=== PATIENT | female | born 1965 | race Asian ===

== ENCOUNTER 2016-08-18 16:47 | Emergency (ER) | payer BC ==
[2016-08-18 17:25] VITALS: BP 97/51; PULSE 54; RESP 16; TEMP 97.5; O2SAT 96
[2016-08-18] MEDS ORDERED: ONDANSETRON DISINTEGRATING 4 MG TAB ONE (17:33)
[2016-08-18] MEDS ORDERED: ONDANSETRON DISINTEGRATING 4 MG TAB PO ONE (17:48)
[2016-08-18] MEDS ORDERED: NS 1,000 ML IV ONE (18:10)
--- NOTE | 2016-08-18 18:10 | UCPHY ---
H & P Time Seen by Provider: 08/18/16 18:00 Patient Type: New HPI/ROS: CHIEF COMPLAINT: Cough and general illness persists HISTORY OF PRESENT ILLNESS: 51-year-old female who has been ill for 10 days. She started with a moderate cough which has been improving but still lingering. She is here today because she feels like she is actually getting a little bit worse with increasing cough. There has been no actual fevers. No prior influenza immunization this past year. No particular exposure or contact. There has been no associated earache or sinus pain or sinus discomfort pain with bending over or change in phonation or adenopathy. Furthermore, as of yesterday afternoon she started vomiting. She has not been able to keep any fluids down since then. Yesterday morning she had some coffee as well as this morning but nothing really else per se. He has not had no known exposure contacts with people with a GI illness. She has had no recent antibiotics. While she has been vomiting is been no diarrhea REVIEW OF SYSTEMS: Constitutional: No fever, no chills. Eyes: No discharge ENT: No sore throat. Cardiovascular: No chest pain, no palpitations. Respiratory: No cough, shortness of breath, or wheezing. Gastrointestinal: No nausea vomiting or diarrhea. No abdominal pain. Genitourinary: No hematuria or frequency. Musculoskeletal: No back pain. Skin: No rashes. Neurological: No headache. Smoking Status: Never smoked Physical Exam: General Appearance: Alert, no distress. Afebrile. Normal phonation. No respiratory distress. Eyes: Pupils equal and round no pallor or injection. No icterus ENT, Mouth: Mucous membranes moist. Pharynx without erythema or exudate. TM Clear. Neck: No adenopathy. Supple. No JVD. Trachea in midline. Respiratory: There are no retractions, lungs are clear to auscultation. Cardiovascular: Regular rate and rhythm. Abdomen: Soft and nontender, no masses, bowel sounds normal. Femoral pulses equal. Neurological: Ox3. No motor weakness. Sensation intact. Gait nl. Skin: Warm and dry, no rashes. Musculoskeletal: No joint swelling. Extremities: No edema. Homans sign negative. No cords. Psychiatric: Normal affect. [Patient is oriented X 3, there is no agitation] Constitutional: Initial Vital Signs Temperature (C) 36.4 C 08/18/16 17:22 Heart Rate 54 L 08/18/16 17:22 Respiratory Rate 16 08/18/16 17:22 Blood Pressure 97/51 L 08/18/16 17:22 O2 Sat (%) 96 08/18/16 17:22 O2 Delivery Mode Room Air Allergies/Adverse Reactions: No Known Allergies Allergy (Verified 08/18/16 17:25) Home Medications: Medication Instructions Recorded NO HOME MEDICATIONS 06/06/10 Medical Decision Making - Diagnostics Imaging: Chest x-ray: Two view chest. Interpreted by radiologist. Films reviewed by me on the PACS system. Normal mediastinum. Bronchitic changes, no pneumonia. No effusions. ED Course/Re-evaluation: IV was established. She was given IV fluids. Furthermore Zofran for nausea. She improved. Differential Diagnosis: Diagnostic considerations include, but are not limited to, the following: URI, sinusitis, pharyngitis, otitis media, pneumonia, allergy, influenza, gastroenteritis, dehydration, diverticulitis, appendicitis, gastritis, mesenteric adenitis, food poisoning, bacterial dysentery. - Data Points Medications Given: Discontinued Medications Sodium Chloride (Ns) 1,000 mls @ 0 mls/hr IV ONCE ONE PRN Reason: As Directed Stop: 08/18/16 18:11 Last Admin: 08/18/16 18:25 Dose: 1,000 mls Ondansetron HCl (Zofran Odt) 4 mg PO EDNOW ONE Stop: 08/18/16 17:49 Last Admin: 08/18/16 17:48 Dose: 4 mg Ondansetron HCl (Zofran) 4 mg IVP EDNOW ONE Stop: 08/18/16 18:12 Last Admin: 08/18/16 18:35 Dose: 4 mg Ondansetron HCl (Zofran Odt 4 Mg Prepack#2) 1 btl TAKEHOME EDNOW ONE Stop: 08/18/16 19:48 Last Admin: 08/18/16 20:06 Dose: 1 btl Departure - Departure Disposition: Home, Routine, Self-Care Clinical Impression: Gastroenteritis Condition: Good Instructions: Gastroenteritis (ED), Acute Nausea and Vomiting (ED) Additional Instructions: For the next 12 hours, take clear liquids Beginning tomorrow, start a soft diet. Such as or eggs or toast. Use the Zofran for the nausea Referrals: Olena Sutherland MD [Primary Care Provider] - As per Instructions - PQRS PQRS Measurement: NA
[2016-08-18] MEDS ORDERED: ONDANSETRON 4 MG/2 ML VIAL IVP ONE (18:11)
[2016-08-18] MEDS ORDERED: ONDANSETRON 4MG PREPACK#2 BTL TAKEHOME ONE (19:47)
== END 2016-08-18 20:24 | disposition home or self-care (01) ==
LOC: CED 16:47
DX: R05 Cough (principal); K52.9 Noninfective gastroenteritis and colitis, unspecified
CPT/HCPCS: 71020-PO; 96361-PO; 96374-PO; 99203-PO; G0463-PO; J2405